=== PATIENT | female | born 1940 | race Caucasian/White ===

== ENCOUNTER 2017-04-28 09:09 | Emergency (ER) | payer OTHER ==
[2017-04-28 09:20] VITALS: BP 142/76; PULSE 78; TEMP 97.9; BMI 29.8
--- NOTE | 2017-04-28 09:37 | PDOC ---
History of Present Illness - General History Source: Patient Exam Limitations: No Limitations - History of Present Illness Initial Comments: 04/28/17 09:58 76 year old female, with significant past medical history of HTN, who presents to the emergency room complaining of left shoulder pain after pulling out a heavy drawer this morning that dragged down her arm. She reports pain when abducting her arm. She states that she took 1 advil this morning without relief. Denies neck pain, back pain, any other injuries. Denies elbow pain. Denies numbness or tingling. Denies chest pain, SOB. Allergies: penicillin <Esperanza Naqvi - Last Filed: 04/28/17 09:57> <Brenna Seo - Last Filed: 04/28/17 12:04> - General Chief Complaint: Pain, Acute Stated Complaint: LT ARM PAIN Time Seen by Provider: 04/28/17 09:35 Past History <Esperanza Naqvi - Last Filed: 04/28/17 09:57> - Past Medical History COPD: No GI Disorders: Yes (DIVERTICULITIS) HTN: Yes - Suicide/Smoking/Psychosocial Hx Smoking Status: No Smoking History: Never smoked Have you smoked in the past 12 months: No Number of Cigarettes Smoked Daily: 0 Information on smoking cessation initiated: No Hx Alcohol Use: No Drug/Substance Use Hx: No Substance Use Type: None Hx Substance Use Treatment: No <Brenna Seo - Last Filed: 04/28/17 12:04> - Past Medical History Allergies/Adverse Reactions: Allergies Allergy/AdvReac Type Severity Reaction Status Date / Time Penicillins Allergy Verified 04/28/17 09:12 Home Medications: Ambulatory Orders Lisinopril [Prinivil] 10 mg PO DAILY 10/16/12 Ondansetron [Zofran Odt -] 4 mg SL TID PRN #21 od.tablet 04/28/17 Tramadol HCl 50 mg PO Q6H PRN #12 tablet MDD 4 tabs 04/28/17 Review of Systems - Review of Systems Able to Perform ROS?: Yes Comments:: 04/28/17 09:58 GENERAL/CONSTITUTIONAL: No fever or chills. No weakness. HEAD, EYES, EARS, NOSE AND THROAT: No change in vision. No ear pain or discharge. No sore throat. CARDIOVASCULAR: No chest pain or shortness of breath. RESPIRATORY: No cough, wheezing, or hemoptysis. MUSCULOSKELETAL: +left shoulder pain. No neck or back pain. SKIN: No rash NEUROLOGIC: No headache, vertigo, loss of consciousness, or change in strength/ sensation. <Esperanza Naqvi - Last Filed: 04/28/17 09:57> *Physical Exam - Vital Signs Last Vital Signs Temp Pulse Resp BP Pulse Ox 97.9 F 78 20 142/76 98 04/28/17 09:15 04/28/17 09:15 04/28/17 09:15 04/28/17 09:15 04/28/17 09:15 <Esperanza Naqvi - Last Filed: 04/28/17 09:57> - Vital Signs Last Vital Signs Temp Pulse Resp BP Pulse Ox 97.9 F 78 20 142/76 98 04/28/17 09:15 04/28/17 09:15 04/28/17 09:15 04/28/17 09:15 04/28/17 09:15 - Physical Exam Comments: GENERAL: Awake, alert, and fully oriented. In obvious discomfort. HEAD: No signs of trauma EYES: PERRLA, EOMI, sclera anicteric, conjunctiva clear ENT: Auricles normal inspection, hearing grossly normal, nares patent, oropharynx clear without exudates. Moist mucosa EXTREMITIES: L shoulder with limited ROM due to pain. +Tenderness to L proximal humerus. Remainder of extremities with normal range of motion, no edema. No clubbing or cyanosis. No cords, erythema, or tenderness NEUROLOGICAL: Cranial nerves II through XII grossly intact. Normal speech, normal gait. Motor and sensation intact. SKIN: Warm, Dry, normal turgor, no rashes or lesions noted. <Brenna Seo - Last Filed: 04/28/17 12:04> ED Treatment Course - Medications Given in the ED: ED Medications Discontinued Medications Generic Name Dose Route Start Last Admin Trade Name Freq PRN Reason Stop Dose Admin Acetaminophen 650 mg 04/28/17 09:42 04/28/17 09:49 Tylenol - PO 04/28/17 09:43 650 mg ONCE ONE Administration Tramadol HCl 50 mg 04/28/17 09:42 04/28/17 09:50 Ultram - PO 04/28/17 09:43 50 mg ONCE ONE Administration <MelissakaleyEsperanza - Last Filed: 04/28/17 09:57> Medical Decision Making - Medical Decision Making XR with no signs of fracture. Analgesics for pain. Stable for DC home. <Brenna Seo - Last Filed: 04/28/17 12:04> *DC/Admit/Observation/Transfer <Evangelist Naqvissica - Last Filed: 04/28/17 09:57> - Discharge Dispostion Admit: No <Brenna Seo - Last Filed: 04/28/17 12:04> Diagnosis at time of Disposition: Left shoulder strain Qualifiers: Encounter type: initial encounter Qualified Code(s): S46.912A - Strain of unspecified muscle, fascia and tendon at shoulder and upper arm level, left arm , initial encounter - Discharge Dispostion Disposition: HOME Condition at time of disposition: Stable - Prescriptions Prescriptions: Ondansetron [Zofran Odt -] 4 mg SL TID PRN #21 od.tablet PRN Reason: Nausea And/Or Vomiting Tramadol HCl 50 mg PO Q6H PRN #12 tablet MDD 4 tabs PRN Reason: Severe Pain - Referrals Referrals: Rizwan Keyes MD [Primary Care Provider] - - Patient Instructions Printed Discharge Instructions: DI for Shoulder Sprain - Post Discharge Activity
[2017-04-28] MEDS ORDERED: ACETAMINOPHEN 325 MG TABLET (FP) PO ONE (09:42)
[2017-04-28] MEDS ORDERED: traMADol HCL 50 MG TABLET PO ONE (09:42)
[2017-04-28] MEDS ORDERED: ACETAMINOPHEN 325 MG TABLET (FP) ONE (09:45)
[2017-04-28] MEDS ORDERED: traMADol HCL 50 MG TABLET ONE (09:46)
[2017-04-28] MEDS ORDERED: ONDANSETRON *ODT* 4 MG TABLET SL ONE (10:30)
[2017-04-28] MEDS ORDERED: ONDANSETRON *ODT* 4 MG TABLET ONE (10:31)
== END 2017-04-28 10:35 | disposition home or self-care (01) ==
LOC: JERFT 09:09 → JER 09:09 → JERFT 10:35
DX: S46.812A Strain of other muscles, fascia and tendons at shoulder and upper arm level, left arm, initial encounter (principal); X50.0XXA Overexertion from strenuous movement or load, initial encounter; Y93.89 Activity, other specified; Y92.018 Other place in single-family (private) house as the place of occurrence of the external cause; Y99.8 Other external cause status; I10 Essential (primary) hypertension
CPT/HCPCS: 73030-TC-LT; 73060-TC-LT; 99282-25